=== PATIENT | female | born 1995 | race Asian ===

== ENCOUNTER 2017-08-11 17:34 | Emergency (ER) | payer BC ==
[~2017-08-11] VITALS: Ht 157.5 cm; Wt 63.5 kg
[2017-08-11 17:45] VITALS: BP_SYST 135
[2017-08-11 18:05] LABS: BILIRUBIN,URINE NEGATIVE (NEGATIVE); BLOOD, URINE NEGATIVE (NEGATIVE); CLARITY/URINE CLEAR (CLEAR); COLOR,URINE YELLOW (YELLOW); GLUCOSE,URINE NEGATIVE (NEGATIVE); KETONES,URINE NEGATIVE (NEGATIVE); LEUKOCYTE ESTERASE ,URINE 1+ (NEGATIVE); NITRITE, URINE NEGATIVE (NEGATIVE); PROTEIN URINE NEGATIVE (NEGATIVE); UROBILINOGEN,URINE 0.2 (0.2-1.0)
[2017-08-11 18:19] LABS: BACTERIA,URINE FEW /HPF (None Seen); RBC,URINE 0-3 /HPF (0-3)
--- NOTE | 2017-08-11 19:34 | NUR ---
Patient to ER bed 7 to gown for evaluation. Side rails up. Report given to JUANJOSE ST.
--- NOTE | 2017-08-11 19:34 | NUR ---
Note phong in ED - 08/11/17 at 1934 by [email or web address] [facility] rails up.
--- NOTE | 2017-08-11 19:48 | NUR ---
Sun Healy GUEST ATTENDANT at bedside examining patient
--- NOTE | 2017-08-11 19:48 | NUR ---
Pt brought by self, A&OX4, Pt c/o vaginal swelling and pain, afebrile, skin pink and warm, cap refill <3, VS WNL,denies bleeding, denies vaginal discharge.
[2017-08-11] MEDS ORDERED: cefTRIAXone 1 GM VIAL ONE (20:00)
[2017-08-11] MEDS ORDERED: LIDOCAINE 1%, 20 ML MDV 20 ML ONE (20:27)
[2017-08-11] MEDS ORDERED: LORazepam 2 MG/ML VIAL (FOR ER USE) ONE (20:34)
[2017-08-11] MEDS: AZITHROMYCIN 250 MG TABLET PO ONE (20:59)
[2017-08-11] MEDS: fentaNYL CITRATE/PF 100 MCG/2 ML AMP IVP ONE (21:00)
[2017-08-11] MEDS: NACL 0.9% 1,000 ML IV ONE (21:01)
[2017-08-11] MEDS: cefTRIAXone 1 GM in D5W 50 ML IV ONE (21:02)
[2017-08-11] MEDS: LORazepam 2 MG/ML VIAL (FOR ER USE) IVP ONE (21:11)
[2017-08-11 21:30] VITALS: BP_SYST 104
--- NOTE | 2017-08-11 21:31 | NUR ---
Patient given written and verbal discharge instructions and verbalizes understanding. ER MD discussed with patient the results and treatment provided. Patient in stable condition. ID arm band removed. IV catheter removed intact and dressing applied, no active bleeding. Rx of [place], Cipro, Motrin, Bactrim given. Patient educated on pain management and to follow up with PMD. Pain Scale 3/10 tolerable for pt . Opportunity for questions provided and answered.
[2017-08-14 01:06] LABS: CHLAMYDIA TRACHOMATIS NAA Negative (Negative); NEISSERIA GONORRHOEAE NAA Negative (Negative)
== END 2017-08-11 21:30 | disposition home or self-care (01) ==
LOC: SED 17:34
DX: N75.0 Cyst of Bartholin's gland (principal); N39.0 Urinary tract infection, site not specified; R03.0 Elevated blood-pressure reading, without diagnosis of hypertension
CPT/HCPCS: 56420; 81000; 87086; 87491; 87591; 96365; 96375; 99284; J0696; J2001; J2060; J3010; J7030; J7060; Q0144

== ENCOUNTER 2020-06-18 22:42 | Emergency (ER) | payer BC ==
[~2020-06-18] VITALS: Ht 162.6 cm; Wt 77.1 kg
[2020-06-18 22:46] VITALS: BP_SYST 129
--- NOTE | 2020-06-18 22:46 | NUR ---
Patient triaged and placed in waiting room. VSS and patient appears in no acute distress at this time. Accompanied by SELF, awaiting available bed, and MD notified of need for MSE.
--- NOTE | 2020-06-19 00:10 | NUR ---
Note phong in ED - 06/19/20 at 0024 by SDEDPR CALLED PT IN THE WR.NO ANSWER.
--- NOTE | 2020-06-19 04:45 | NUR ---
Patient to ER bed 4 to gown for evaluation. Side rails up. Report given to Noa SOW.
--- NOTE | 2020-06-19 05:15 | NUR ---
ER Dr. matson at bedside examining patient.
--- NOTE | 2020-06-19 05:16 | NUR ---
pt a&o x4 from home c/o of itchiness and pimple like bumps around vagina that started about . pt states she started to aggressively itch her vagina and then yesterday realized the bumps started multiplying. pt reports white clear discharge from vagina and burning while she urinates. pt states the area is painful when walking, 03/06.
--- NOTE | 2020-06-19 05:19 | NUR ---
female nurse, Noa RN at bedside with Dr. Malave for bedside evaluation of vagina.
[2020-06-19] MEDS ORDERED: AZITHROMYCIN 250 MG TABLET PO ONE (05:30)
[2020-06-19] MEDS ORDERED: valACYclovir HCL 500 MG TABLET PO ONE (05:30)
[2020-06-19] MEDS ORDERED: cefTRIAXone 250 MG in LIDOCAINE 1%, 20 ML MDV 0.9 ML IM ONE (05:30)
--- NOTE | 2020-06-19 05:30 | NUR ---
Urine HCG done, results negative. aware.
[2020-06-19 06:09] VITALS: BP_SYST 126
--- NOTE | 2020-06-19 06:09 | NUR ---
Patient given written and verbal discharge instructions and verbalizes understanding. ER MD discussed with patient the results and treatment provided. Patient in stable condition. ID arm band removed. Rx of motrin, valacyclovir given. Patient educated on pain management and to follow up with PMD. Pain Scale 2/10. Opportunity for questions provided and answered. Medication side effect fact sheet provided.
[2020-06-21 02:09] LABS: CHLAMYDIA TRACHOMATIS NAA Negative (Negative); NEISSERIA GONORRHOEAE NAA Negative (Negative)
== END 2020-06-19 06:09 | disposition home or self-care (01) ==
LOC: SED 22:42
DX: B00.9 Herpesviral infection, unspecified (principal)
CPT/HCPCS: 81025; 87491; 87591; 96372; 99283